=== PATIENT | female | born 1990 | race Two or more races ===

== ENCOUNTER 2018-01-09 09:54 | Outpatient (CLI) | payer OTHER | END 2018-01-09 10:06 | disposition home or self-care (01) | LOC: SONOGRAMA 09:54 → MAMO-SONO 10:15 | DX: D25.9 Leiomyoma of uterus, unspecified (principal); N60.11 Diffuse cystic mastopathy of right breast; N60.12 Diffuse cystic mastopathy of left breast ==

== ENCOUNTER → 2019-01-09 | Outpatient (CLI) | payer OTHER | END | disposition home or self-care (01) | LOC: TOM 08:45 | DX: E66.01 Morbid (severe) obesity due to excess calories (principal); C71.9 Malignant neoplasm of brain, unspecified ==

== ENCOUNTER 2021-02-02 09:48 | Outpatient (CLI) | payer OTHER | END 2021-02-02 10:07 | disposition home or self-care (01) | LOC: TOM 09:48 | PROVIDERS: ATTEND Otolaryngology | DX: D37.032 Neoplasm of uncertain behavior of the submandibular salivary glands (principal) ==

== ENCOUNTER → 2021-03-10 | Outpatient (CLI) | payer OTHER | END | disposition home or self-care (01) | LOC: SONOGRAMA 09:05 | PROVIDERS: ATTEND Pathology Anatomic Pathology & Clinical Pathology | DX: R22.1 Localized swelling, mass and lump, neck (principal); D11.0 Benign neoplasm of parotid gland ==

== ENCOUNTER 2024-04-21 08:31 | Outpatient (CLI) | payer OTHER ==
[~2024-04-21 08:31] MED LIST: AMOX-CLAV 875-1 EACH PO; HYOSCYAMINE0.125 M1 SL; INTESTINEX680 M1 PO; LEVSIN/SL0.125 MG SL; PEPCID AC20 MG PO; PROTONIX20 MG PO
== END 2024-04-21 08:35 | disposition home or self-care (01) ==
LOC: SONOGRAMA 08:31
PROVIDERS: ATTEND Pathology Anatomic Pathology & Clinical Pathology
DX: R59.0 Localized enlarged lymph nodes (principal); R22.1 Localized swelling, mass and lump, neck